=== PATIENT | male | born 2000 | race Caucasian/White ===

== ENCOUNTER 2018-07-13 16:24 | Emergency (ER) | payer SELFPAY ==
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
[2018-07-13 18:10] VITALS: BP 132/78
== END 2018-07-13 18:06 | disposition home or self-care (01) ==
LOC: ED 16:24
DX: S41.002A Unspecified open wound of left shoulder, initial encounter (principal); W34.00XA Accidental discharge from unspecified firearms or gun, initial encounter; Y93.89 Activity, other specified; Y92.89 Other specified places as the place of occurrence of the external cause; Y99.8 Other external cause status
CPT/HCPCS: 99283